=== PATIENT | female | born 1970 | race Two or more races ===

== ENCOUNTER 2017-09-02 07:55 | Emergency (ER) | payer MEDICAID ==
[~2017-09-02] VITALS: Ht 165.1 cm; Wt 113.4 kg
[2017-09-02 08:03] VITALS: BP 148/80
[2017-09-02] MEDS ORDERED: METHOCARBAMOL 500 MG TAB ONE (08:50)
[2017-09-02] MEDS ORDERED: KETOROLAC TROMETH 60MG/2ML VIAL IM ONE ×2 (08:50→09:00)
[2017-09-02] MEDS ORDERED: METHOCARBAMOL 500 MG TAB PO ONE (09:00)
== END 2017-09-02 10:28 | disposition home or self-care (01) ==
LOC: ER 07:55
DX: M54.31 Sciatica, right side (principal)
CPT/HCPCS: 72100; 73562; 96372; 99284; J1885

== ENCOUNTER 2019-06-17 09:46 | Inpatient (IN) | payer MEDICAID ==
[~2019-06-17] VITALS: Ht 152.4 cm; Wt 296.8 kg
[2019-06-17 10:38] LABS: Basophils # (auto) 0 uL; Basophils % (auto) 0.7 % (0.0-2.0); Eosinophils # (auto) 0.1 uL; Eosinophils % (auto) 1.4 % (0.0-7.0); Hematocrit 41.7 % (36.0-46.0); Hemoglobin 14.1 g/dL (12.2-16.2); Lymphocytes # (auto) 1.7 uL; Lymphocytes % (auto) 24.4 % (10.0-50.0); Mean Corpuscular Hemoglobin 29.9 pg (28.0-32.0); Mean Corpuscular Hgb Conc. 33.9 g/dL (32.0-36.0); Mean Corpuscular Volume 88.1 fL (80.0-100.0); Monocytes # (auto) 0.3 uL; Monocytes % (auto) 4.5 % (0.0-12.0); Neutrophils # (auto) 4.7 uL; Nucleated Red Blood Cells % 0.1 %; Platelet Count (auto) 161 10^3/uL (140-450); Red Blood Cells 4.73 10^6/uL (4.0-5.20); Red Cell Distribution Width 13.9 % (11.8-14.3); White Blood Cell 6.9 10^3/uL (4.4-10.8)
[2019-06-17 10:58] LABS: Albumin 3.5 g/dL (3.4-5.0); Anion Gap 6 (5-15); Blood Urea Nitrogen 14 mg/dL (7-18); Calcium 8.4 mg/dL (8.5-10.1); Carbon Dioxide 27 mmol/L (21-32); Chloride 107 mmol/L (98-107); Glucose 111 mg/dL (74-106); Potassium 3.9 mmol/L (3.5-5.1); Sodium 140 mmol/L (136-145)
[2019-06-17 11:01] LABS: Alanine Aminotransferase 34 U/L (13-56); Aspartate Aminotransferase 28 U/L (15-37); BUN/Creatinine Ratio 20.9; GFR African American 120 mL/min; GFR Non-African American 99 mL/min
[2019-06-17 11:08] LABS: Alkaline Phosphatase 114 U/L (45-117); Bilirubin, Total 0.3 mg/dL (0.2-1.0); Total Protein 7.4 g/dL (6.4-8.2)
[2019-06-17 11:30] LABS: Amylase 34 U/L (25-115); Lipase 78 U/L (73-393)
[2019-06-17 12:09] LABS: Urine Bacteria NONE SEEN /hpf (None Seen); Urine Blood Negative /uL (Negative); Urine Mucus FEW (None Seen); Urine Specific Gravity 1.023 (1.001-1.035); Urine WBC 1 /hpf (0 - 5)
[2019-06-17] MEDS ORDERED: SODIUM CHLORIDE 0.9% 1,000 ML IV ONE ×2 (12:47)
[2019-06-17] MEDS ORDERED: PIPERACILLIN-TAZOB 3.375GM 100 ML IV ONE (13:00)
[2019-06-17] MEDS ORDERED: SODIUM CHLORIDE 0.9% 1,000 ML IV SCH (13:11)
[2019-06-17] MEDS ORDERED: traMADol HCL 50 MG TAB PO PRN (13:15)
[2019-06-17] MEDS ORDERED: cefTRIAXone 1GM/50ML D5W 50 ML IV ONE (13:15)
[2019-06-17] MEDS ORDERED: MORPHINE SULFATE 4 MG/ML SYR/VIAL IV PRN (13:15)
[2019-06-17] MEDS ORDERED: TEMAZEPAM 15 MG CAP PO PRN (13:15)
[2019-06-17] MEDS ORDERED: PROMETHAZINE HCL 25 MG/ML 1ML IV PRN (13:15)
[2019-06-17] MEDS ORDERED: ACETAMINOPHEN 500 MG TAB PO PRN (13:15)
[2019-06-17] MEDS ORDERED: FAMOTIDINE 20 MG TAB PO ONE (13:30)
--- NOTE | 2019-06-17 14:00 | NUR ---
RECEIVED PATIENT IN BED. RECEIVED REPORT FROM SHAMIR OCASIO. PATIENT ORIENTED TO [facility] ROOM INCLUDING HOSPITAL POLICY AND CALL LIGHT USE. PATIENT REPORTING 4/10 ABDOMINAL PAIN TO LOWER ABDOMEN. PATIENT DENIES ANY NAUSEA OR VOMITING AT THIS TIME. PATIENT UPDATED ON POC. ALL QUESTIONS ANSWERED, BED IN LOWEST LOCKED POSITION WITH CALL LIGHT WITHIN REACH.
[2019-06-17 14:10] VITALS: BP 131/64
--- NOTE | 2019-06-17 15:45 | NUR ---
IV insertion IV access obtained, via clean sterile technique by inserting 20 gauge catheter at RFA after 1 attempt(s). IV secured properly. No trauma to site. Patient tolerated well. NOTE:
[2019-06-17] MEDS: MORPHINE SULF INJ 2 MG/ML SYRINGE 1ML IV PRN (15:53)
[2019-06-17] MEDS: SODIUM CHLORIDE 0.9% 1,000 ML IV SCH ×2 (15:54→23:50)
[2019-06-17] MEDS: metroNIDAZOLE 500MG/100ML 100 ML IV SCH ×2 (16:34→21:46)
[2019-06-17 17:00] VITALS: BP 136/68
--- NOTE | 2019-06-17 19:23 | NUR ---
Opening Shift Note received report from day shift nurseJewel. Assumed care of patient. Patient is awake, alert and orientated x 4. No S/S of distress/SOB or pain. Bed is in lowest position with side rails up x 2. Bed brakes are locked and call light is with in reach. Hob is 30 degrees. Instructed on POC and to call for assist PRN, will continue to monitor for changes Q1hr and PRN.
[2019-06-17] MEDS: FAMOTIDINE 20 MG TAB PO SCH (21:46)
[2019-06-17 22:00] VITALS: BP 138/77
[2019-06-18 05:00] VITALS: BP 117/63
[2019-06-18] MEDS: metroNIDAZOLE 500MG/100ML 100 ML IV SCH ×3 (05:07→21:51)
--- NOTE | 2019-06-18 07:10 | NUR ---
CLOSING NOTES ENDORSED CARE TO DAY SHIFT NURSEVIOLETA.
[2019-06-18] MEDS: FAMOTIDINE 20 MG TAB PO SCH ×2 (09:25→21:51)
[2019-06-18] MEDS: cefTRIAXone 1GM/50ML D5W 50 ML IV SCH (09:25)
[2019-06-18] MEDS: SODIUM CHLORIDE 0.9% 1,000 ML IV SCH (09:28)
[2019-06-18 09:32] VITALS: BP 129/62
[2019-06-18] MEDS: MORPHINE SULF INJ 2 MG/ML SYRINGE 1ML IV PRN (10:33)
[2019-06-18 13:00] VITALS: BP 130/86
[2019-06-18 16:53] VITALS: BP 138/78
--- NOTE | 2019-06-18 19:13 | NUR ---
Opening Shift Note received report from day shift nurseJewel. Assumed care of patient. Patient is awake, alert and orientated x 4. Family is at bedside. No S/S of distress/SOB or pain. Bed is in lowest position with side rails up x 2. Bed brakes are locked and call light is with in reach. Hob is 30 degrees. Instructed on POC and to call for assist PRN, will continue to monitor for changes Q1hr and PRN.
[2019-06-18 21:48] VITALS: BP 130/63
[2019-06-18] MEDS ORDERED: DOCUSATE SOD 100 MG CAP PO SCH (22:00)
[2019-06-18] MEDS: LACTULOSE 20Gm/30ML SOLN PO SCH (22:00)
--- NOTE | 2019-06-18 22:31 | NUR ---
BM PATIENT CLAIMS TO HAVE 2 BOWEL MOVEMENTS THIS EVENING AND IS REFUSING LACTULOSE AT THIS TIME.
[2019-06-19 04:52] VITALS: BP 114/57
[2019-06-19] MEDS: SODIUM CHLORIDE 0.9% 1,000 ML IV SCH ×2 (05:50→10:38)
[2019-06-19] MEDS: metroNIDAZOLE 500MG/100ML 100 ML IV SCH (06:17)
[2019-06-19 06:27] LABS: Basophils # (auto) 0 uL; Basophils % (auto) 0.4 % (0.0-2.0); Eosinophils # (auto) 0.1 uL; Eosinophils % (auto) 2.7 % (0.0-7.0); Hemoglobin 13.3 g/dL (12.2-16.2); Lymphocytes # (auto) 1.1 uL; Lymphocytes % (auto) 21.4 % (10.0-50.0); Mean Corpuscular Hgb Conc. 34.1 g/dL (32.0-36.0); Mean Corpuscular Volume 88.2 fL (80.0-100.0); Monocytes # (auto) 0.3 uL; Neutrophils # (auto) 3.6 uL; Neutrophils % (auto) 69.5 % (37.0-80.0); Platelet Count (auto) 140 10^3/uL (140-450); Red Blood Cells 4.42 10^6/uL (4.0-5.20); White Blood Cell 5.1 10^3/uL (4.4-10.8)
[2019-06-19 06:29] LABS: Albumin 3.1 g/dL (3.4-5.0); Calcium 8.7 mg/dL (8.5-10.1)
[2019-06-19 06:46] LABS: Bilirubin, Total 0.3 mg/dL (0.2-1.0); Total Protein 6.6 g/dL (6.4-8.2)
[2019-06-19 07:08] LABS: CRP High Sensitivity 1.83 mg/dL (< 0.3)
--- NOTE | 2019-06-19 07:10 | NUR ---
CLOSING NOTES ENDORSED CARE TO DAY SHIFT NURSEJOE.
--- NOTE | 2019-06-19 07:12 | NUR ---
Opening Note Assumed pt care from [facility] nurse. Pt is a/iox4 with no s/s of distress or SOB. Pt is currently sitting upright in bed with no complaints other than generalized abdominal pain. Discussed POC with pt; pt verbalzied understanding. Safety measures maintained with call light within reach, bed in lowest position and side rails up. Will continue to monitor for changes q1hr and prn.
[2019-06-19] MEDS: cefTRIAXone 1GM/50ML D5W 50 ML IV SCH (08:29)
[2019-06-19] MEDS: FAMOTIDINE 20 MG TAB PO SCH (08:29)
[2019-06-19] MEDS: LACTULOSE 20Gm/30ML SOLN PO SCH (08:29)
[2019-06-19 09:00] VITALS: BP 130/66
--- NOTE | 2019-06-19 12:10 | NUR ---
IV D/C'ED IV FROM PT'S R HAND D/C'ED. CATHETER REMOVED FULLY INTACT AND SITE IS ASYMPTOMATIC. PRESSURE APPLIED TO SITE FOR 3 MINUTES AND THEN WRAPPED IN GAUZE. PT INSTRUCTED TO KEEP DRESSING ON FOR 30 MINUTES; PT VERBALIZED UNDERSTANDING.
[2019-06-19 12:15] VITALS: BP 130/66
--- NOTE | 2019-06-19 13:34 | NUR ---
Pt D/C'ed Off Unit Pt left unit accompanied by friend. Pt has all belongings, all education material, prescriptions and all questions were answered.
[2019-06-20] MEDS ORDERED: DOCUSATE SOD 100 MG CAP PO SCH (22:00)
== END 2019-06-19 13:30 | disposition home or self-care (01) | DRG 244 ==
LOC: ER 09:50 → OVERFLOW 09:51 → CENTRAL 14:48
PROVIDERS: ADMIT Internal Medicine; ATTEND Internal Medicine
DX: K57.32 Diverticulitis of large intestine without perforation or abscess without bleeding (principal); E66.01 Morbid (severe) obesity due to excess calories; R10.9 Unspecified abdominal pain; J44.9 Chronic obstructive pulmonary disease, unspecified; K52.9 Noninfective gastroenteritis and colitis, unspecified; K59.09 Other constipation; Z68.43 Body mass index [BMI] 50.0-59.9, adult
CPT/HCPCS: 36415; 74176; 80053; 81001; 82150; 82378; 83605; 83690; 84484; 85025; 86141; 87040; 96365; G0378; J0696; J2543; J3490

== ENCOUNTER 2019-08-28 14:27 | Emergency (ER) | payer MEDICAID ==
[~2019-08-28] VITALS: Ht 152.4 cm; Wt 86.2 kg
[2019-08-28 15:25] LABS: Urine Bacteria NONE SEEN /hpf (None Seen); Urine Blood Negative /uL (Negative); Urine Mucus FEW (None Seen); Urine Specific Gravity 1.023 (1.001-1.035); Urine WBC 2 /hpf (0 - 5)
[2019-08-28 15:33] LABS: Basophils # (auto) 0.1 uL; Eosinophils # (auto) 0.1 uL; Hematocrit 41.3 % (36.0-46.0); Hemoglobin 14.1 g/dL (12.2-16.2); Lymphocytes # (auto) 1.9 uL; Lymphocytes % (auto) 26.4 % (10.0-50.0); Mean Corpuscular Hgb Conc. 34.2 g/dL (32.0-36.0); Mean Corpuscular Volume 87.6 fL (80.0-100.0); Monocytes # (auto) 0.4 uL; Monocytes % (auto) 5.8 % (0.0-12.0); Neutrophils # (auto) 4.8 uL; Neutrophils % (auto) 65.8 % (37.0-80.0); Nucleated Red Blood Cells % 0.1 %; Platelet Count (auto) 211 10^3/uL (140-450); Red Blood Cells 4.71 10^6/uL (4.0-5.20); Red Cell Distribution Width 13.5 % (11.8-14.3); White Blood Cell 7.3 10^3/uL (4.4-10.8)
[2019-08-28 15:45] LABS: Albumin 3.5 g/dL (3.4-5.0); BUN/Creatinine Ratio 17.1; Calcium 9.3 mg/dL (8.5-10.1); Potassium 3.8 mmol/L (3.5-5.1)
[2019-08-28 15:48] LABS: Bilirubin, Total 0.3 mg/dL (0.2-1.0); Total Protein 7.8 g/dL (6.4-8.2)
[2019-08-28] MEDS ORDERED: metroNIDAZOLE 500MG/100ML 100 ML IV ONE (20:15)
[2019-08-28] MEDS ORDERED: SODIUM CHLORIDE 0.9% 1,000 ML IV ONE (20:15)
[2019-08-28] MEDS ORDERED: metroNIDAZOLE 500 MG TAB PO ONE (20:45)
[2019-08-28] MEDS ORDERED: SODIUM CHLORIDE 0.9% 500 ML IV ONE (20:45)
[2019-08-28 20:48] VITALS: BP 102/81
== END 2019-08-28 21:47 | disposition home or self-care (01) ==
LOC: ER 14:29
DX: K57.32 Diverticulitis of large intestine without perforation or abscess without bleeding (principal); K59.00 Constipation, unspecified
CPT/HCPCS: 36415; 74176; 80053; 81001; 83690; 85025; 93005; 99284; J7040

== ENCOUNTER 2020-12-03 13:34 | Emergency (ER) | payer MEDICAID ==
[~2020-12-03] VITALS: Ht 154.9 cm; Wt 158.8 kg
[2020-12-03] MEDS ORDERED: PANTOPRAZOLE 40 MG/10 ML VIAL INJ IV STA (13:44)
[2020-12-03] MEDS ORDERED: ONDANSETRON HCL 4 MG/2 ML VIAL IV ONE (13:45)
[2020-12-03] MEDS ORDERED: SODIUM CHLORIDE 0.9% 500 ML IVB ONE (13:45)
[2020-12-03] MEDS ORDERED: MORPHINE SULFATE 4 MG/ML SYR/VIAL IV ONE (13:45)
[2020-12-03 14:47] LABS: Basophils # (auto) 0 10 ^3/uL (0-0.2); Basophils % (auto) 0.6 % (0.0-2.0); Eosinophils # (auto) 0.1 10 ^3/uL (0-0.8); Eosinophils % (auto) 2.2 % (0.0-7.0); Hematocrit 34.8 % (36.0-46.0); Hemoglobin 11.7 g/dL (12.2-16.2); Lymphocytes # (auto) 1.2 10 ^3/uL (0.4-5.4); Lymphocytes % (auto) 20.5 % (10.0-50.0); Mean Corpuscular Hemoglobin 29.5 pg (28.0-32.0); Mean Corpuscular Hgb Conc. 33.7 g/dL (32.0-36.0); Mean Corpuscular Volume 87.7 fL (80.0-100.0); Monocytes # (auto) 0.3 10 ^3/uL (0-1.3); Monocytes % (auto) 4.7 % (0.0-12.0); Neutrophils # (auto) 4.3 10 ^3/uL (1.6-8.6); Nucleated Red Blood Cells % 0.1 %; Platelet Count (auto) 138 10^3/uL (140-450); Red Blood Cells 3.97 10^6/uL (4.0-5.20); Red Cell Distribution Width 13.9 % (11.8-14.3)
[2020-12-03 14:58] LABS: Albumin 3.1 g/dL (3.4-5.0); Calcium 8.9 mg/dL (8.5-10.1); Potassium 3.8 mmol/L (3.5-5.1)
[2020-12-03 15:02] LABS: BUN/Creatinine Ratio 32.9; Bilirubin, Total 0.4 mg/dL (0.2-1.0); Total Protein 6.8 g/dL (6.4-8.2)
[2020-12-03 16:53] VITALS: BP 149/62
== END 2020-12-03 18:06 | disposition home or self-care (01) ==
LOC: ER 13:34
DX: K29.00 Acute gastritis without bleeding (principal)
CPT/HCPCS: 36415; 76705; 80053; 82150; 83690; 85025

== ENCOUNTER 2020-12-08 11:03 | Inpatient (IN) | payer MEDICAID ==
[~2020-12-08] VITALS: Ht 154.9 cm; Wt 139.0 kg
[2020-12-08 11:55] LABS: Basophils # (auto) 0 10 ^3/uL (0-0.2); Basophils % (auto) 0.3 % (0.0-2.0); Eosinophils # (auto) 0 10 ^3/uL (0-0.8); Eosinophils % (auto) 0.4 % (0.0-7.0); Hematocrit 35.6 % (36.0-46.0); Hemoglobin 12.2 g/dL (12.2-16.2); Lymphocytes # (auto) 0.9 10 ^3/uL (0.4-5.4); Lymphocytes % (auto) 8.5 % (10.0-50.0); Mean Corpuscular Hemoglobin 29.6 pg (28.0-32.0); Mean Corpuscular Hgb Conc. 34.2 g/dL (32.0-36.0); Mean Corpuscular Volume 86.7 fL (80.0-100.0); Monocytes # (auto) 0.4 10 ^3/uL (0-1.3); Monocytes % (auto) 3.9 % (0.0-12.0); Neutrophils # (auto) 9.2 10 ^3/uL (1.6-8.6); Neutrophils % (auto) 86.9 % (37.0-80.0); Nucleated Red Blood Cells % 0.1 %; Platelet Count (auto) 126 10^3/uL (140-450); Red Blood Cells 4.11 10^6/uL (4.0-5.20); Red Cell Distribution Width 14.1 % (11.8-14.3); White Blood Cell 10.6 10^3/uL (4.4-10.8)
[2020-12-08 12:06] LABS: Albumin 3.3 g/dL (3.4-5.0); Calcium 8.3 mg/dL (8.5-10.1); Magnesium 2.4 mg/dL (1.6-2.6); Potassium 3.6 mmol/L (3.5-5.1)
[2020-12-08 12:13] LABS: BUN/Creatinine Ratio 26.6; Bilirubin, Total 0.8 mg/dL (0.2-1.0); Total Protein 7.1 g/dL (6.4-8.2)
[2020-12-08] MEDS ORDERED: LORazepam 2MG/ML-1ML VIAL ONE (12:52)
[2020-12-08] MEDS ORDERED: ONDANSETRON HCL 4 MG/2 ML VIAL IV ONE (13:00)
[2020-12-08] MEDS ORDERED: MORPHINE SULF INJ 2 MG/ML SYRINGE 1ML IV ONE (13:00)
[2020-12-08 13:36] LABS: INR 1.05 (0.9-1.15); Partial Thromboplastin Time 24.5 sec (23.0-31.2)
[2020-12-08 13:38] LABS: Urine Bacteria NONE SEEN /hpf (None Seen); Urine Blood 3+ /uL (Negative); Urine Budding Yeast OCCASIONAL /hpf (None Seen); Urine Mucus FEW (None Seen); Urine Specific Gravity 1.018 (1.001-1.035); Urine WBC 5 /hpf (0 - 5)
[2020-12-08] MEDS ORDERED: LORazepam 2MG/ML-1ML VIAL IV ONE (13:45)
[2020-12-08 15:59] LABS: Alcohol, Urine < 3.0 mg/dL (0-10); Amphetamine Screen, Urine NEGATIVE (NEGATIVE); Barbiturate Scree,Urine NEGATIVE (NEGATIVE); Benzodiazephine Screen, Urine NEGATIVE (NEGATIVE); Cannabinoid Screen, Urine NEGATIVE (NEGATIVE); Cocaine Screen, Urine NEGATIVE (NEGATIVE); Opiate Scree,Urine NEGATIVE (NEGATIVE); Phencyclidine Screen, Urine NEGATIVE (NEGATIVE)
[2020-12-08] MEDS ORDERED: ONDANSETRON HCL 4 MG/2 ML VIAL IV PRN (17:00)
[2020-12-08] MEDS ORDERED: MORPHINE SULF INJ 2 MG/ML SYRINGE 1ML IV PRN (17:00)
[2020-12-08] MEDS ORDERED: LORazepam 2MG/ML-1ML VIAL IV PRN (17:00)
[2020-12-08] MEDS ORDERED: NITROGLYCERIN 0.4 MG SL TAB SL PRN (17:00)
[2020-12-08] MEDS: SODIUM CHLORIDE 0.9% 1,000 ML IV SCH (17:31)
[2020-12-08 19:46] LABS: % Iron Saturation 38.7 % (15-50)
[2020-12-08 21:46] VITALS: BP 155/67
[2020-12-08 22:00] VITALS: BP 155/67
[2020-12-08] MEDS ORDERED: PANT1INJ3 PO (22:46)
[2020-12-08] MEDS ORDERED: ONDA-144 PO (22:46)
[2020-12-09 04:48] VITALS: BP 154/69
[2020-12-09] MEDS: SODIUM CHLORIDE 0.9% 1,000 ML IV SCH (05:09)
[2020-12-09 09:00] VITALS: BP 118/49
[2020-12-09] MEDS: PANTOPRAZOLE 40 MG TAB PO SCH ×2 (11:34→21:43)
[2020-12-09] MEDS: METOPROLOL TARTRATE 25 MG TAB PO SCH ×2 (11:45→21:43)
[2020-12-09] MEDS ORDERED: ACETAMINOPHEN 325 MG TAB PO PRN (11:45)
[2020-12-09] MEDS: hydrALAZINE HCL 20 MG/ML VL IV PRN ×2 (12:15→18:15)
[2020-12-09 13:00] VITALS: BP 165/74
[2020-12-09] MEDS ORDERED: MET25T PO (15:36)
[2020-12-09] MEDS ORDERED: PANT40T PO (15:36)
[2020-12-09 17:00] VITALS: BP 169/77
[2020-12-09 17:27] LABS: BUN/Creatinine Ratio 35.3; Potassium 3.4 mmol/L (3.5-5.1)
[2020-12-09 19:49] LABS: Basophils # (auto) 0.1 10 ^3/uL (0-0.2); Basophils % (auto) 0.6 % (0.0-2.0); Eosinophils # (auto) 0.1 10 ^3/uL (0-0.8); Eosinophils % (auto) 1.5 % (0.0-7.0); Hematocrit 34.1 % (36.0-46.0); Hemoglobin 11.7 g/dL (12.2-16.2); Lymphocytes # (auto) 1.5 10 ^3/uL (0.4-5.4); Lymphocytes % (auto) 16.5 % (10.0-50.0); Mean Corpuscular Hemoglobin 29.7 pg (28.0-32.0); Mean Corpuscular Hgb Conc. 34.3 g/dL (32.0-36.0); Mean Corpuscular Volume 86.5 fL (80.0-100.0); Monocytes # (auto) 0.5 10 ^3/uL (0-1.3); Monocytes % (auto) 5.1 % (0.0-12.0); Neutrophils # (auto) 7.2 10 ^3/uL (1.6-8.6); Neutrophils % (auto) 76.3 % (37.0-80.0); Nucleated Red Blood Cells % 0.1 %; Platelet Count (auto) 117 10^3/uL (140-450); Red Blood Cells 3.95 10^6/uL (4.0-5.20); Red Cell Distribution Width 13.7 % (11.8-14.3); White Blood Cell 9.4 10^3/uL (4.4-10.8)
[2020-12-09] MEDS ORDERED: LORazepam 2MG/ML-1ML VIAL IV PRN (20:30)
[2020-12-09 22:00] VITALS: BP 141/62
[2020-12-10 03:40] VITALS: BP 144/62
[2020-12-10 05:00] VITALS: BP 147/62
[2020-12-10] MEDS: METOPROLOL TARTRATE 25 MG TAB PO SCH (09:47)
[2020-12-10] MEDS: PANTOPRAZOLE 40 MG TAB PO SCH (09:47)
[2020-12-10 09:59] VITALS: BP 159/89
[2020-12-10 13:00] VITALS: BP 150/72
[2020-12-10 16:50] VITALS: BP 176/90
== END 2020-12-10 16:15 | disposition home health service (06) | DRG 241 ==
LOC: ER 11:03 → TELE 16:57 → TELE-CENTR 20:08
PROVIDERS: ADMIT Internal Medicine; ATTEND Internal Medicine
DX: K29.71 Gastritis, unspecified, with bleeding (principal); E66.01 Morbid (severe) obesity due to excess calories; G83.84 Todd's paralysis (postepileptic); G40.409 Other generalized epilepsy and epileptic syndromes, not intractable, without status epilepticus; Z68.43 Body mass index [BMI] 50.0-59.9, adult; Z20.822 Contact with and (suspected) exposure to COVID-19; M54.2 Cervicalgia; K21.9 Gastro-esophageal reflux disease without esophagitis; I10 Essential (primary) hypertension; F17.200 Nicotine dependence, unspecified, uncomplicated; N83.202 Unspecified ovarian cyst, left side; G47.10 Hypersomnia, unspecified; Z83.3 Family history of diabetes mellitus; Z82.49 Family history of ischemic heart disease and other diseases of the circulatory system
CPT/HCPCS: 36415; 51702; 70450; 70490; 70551; 71045; 74176; 76856; 80048; 80053; 80307; 81001; 82607; 83540; 83550; 83690; 83735; 83880; 84443; 84484; 85025; 85610; 85730; 86304; 87426; 93005; 93970; 95819; 96361; 96374; 99291; G0378; J2405

== ENCOUNTER 2022-07-29 11:11 | Emergency (ER) | payer MEDICAID ==
[~2022-07-29] VITALS: Ht 165.1 cm; Wt 122.6 kg
[~2022-07-29 11:11] MED LIST: MET25T PO; PANT40T PO
[2022-07-29 12:39] LABS: Urine Bacteria NONE SEEN /hpf (None Seen); Urine Blood Negative /uL (Negative); Urine Mucus FEW (None Seen); Urine Specific Gravity 1.022 (1.001-1.035); Urine WBC 1 /hpf (0 - 5)
[2022-07-29 12:46] LABS: Basophils # (auto) 0.1 10 ^3/uL (0-0.2); Basophils % (auto) 0.9 % (0.0-2.0); Eosinophils # (auto) 0.1 10 ^3/uL (0-0.8); Eosinophils % (auto) 0.8 % (0.0-7.0); Hematocrit 41.1 % (36.0-46.0); Hemoglobin 13.6 g/dL (12.2-16.2); Lymphocytes # (auto) 1.4 10 ^3/uL (0.4-5.4); Lymphocytes % (auto) 14.9 % (10.0-50.0); Mean Corpuscular Hgb Conc. 33.2 g/dL (32.0-36.0); Mean Corpuscular Volume 87.3 fL (80.0-100.0); Monocytes # (auto) 0.5 10 ^3/uL (0-1.3); Neutrophils # (auto) 7.4 10 ^3/uL (1.6-8.6); Neutrophils % (auto) 78.4 % (37.0-80.0); Nucleated Red Blood Cells % 0.1 %; Red Blood Cells 4.71 10^6/uL (4.0-5.20); Red Cell Distribution Width 13.8 % (11.8-14.3); White Blood Cell 9.4 10^3/uL (4.4-10.8)
[2022-07-29 13:05] LABS: Albumin 3.5 g/dL (3.4-5.0); Calcium 9.4 mg/dL (8.5-10.1)
[2022-07-29 13:09] LABS: BUN/Creatinine Ratio 20.3; Bilirubin, Total 0.4 mg/dL (0.2-1.0); Total Protein 7.6 g/dL (6.4-8.2)
[2022-07-29] MEDS ORDERED: PANT40TA2 PO (13:37)
[2022-07-29] MEDS ORDERED: DICY10CA PO (13:37)
[2022-07-29 14:14] VITALS: BP 121/63
== END 2022-07-29 14:16 | disposition home or self-care (01) ==
LOC: ER 11:11
DX: R10.13 Epigastric pain (principal); E11.9 Type 2 diabetes mellitus without complications; I10 Essential (primary) hypertension
CPT/HCPCS: 36415; 80053; 81001; 83690; 85025; 93005